=== PATIENT | female | born 1935 | race African-American/Black ===

== ENCOUNTER 2017-01-27 06:55 | Inpatient (IN) | payer OTHER ==
[~2017-01-27] VITALS: Ht 149.9 cm; Wt 50.0 kg
[2017-01-27] VITALS (33 sets, daily range): BP systolic 92–157; BP diastolic 57–100
--- NOTE | ~2017-01-27 | EKG ---
[address] [address] ELECTROCARDIOGRAM REPORT Name: ROBERTA BAINS Room #: 240-P ADM IN M.R.#: [id number] Admission: 01/27/17 Attend Phys: Alex Machuca MD Discharge: Date of : 33 Report #: [id number] THIS REPORT FOR: //name// [facility] Test Date: 2017-01-29 Test Time: 06:32:44 Pat Name: ROBERTA BAINS Department: Room: 240 P Gender: F Probate Paralegal: sheree : 1935 Requested By: Nic Mitchell Order Number: [id number] MD: Stepan Beal Measurements Intervals [place] Rate: 76 P: 0 IN: 47 QRS: 45 QRSD: 90 T: -27 QT: 445 QTc: 501 Interpretive Statements Sinus rhythm Short IN interval Inferior infarct, age indeterminate Prolonged QT interval Electronically Signed On 01-29-2017 7:37:34 ENDLESS TRACK VEHICLE MECHANIC by Stepan Beal [email or web address] <ELECTRONICALLY SIGNED> By: Stepan Beal MD 01/29/17 0737 0632 1 Stepan Beal MD /CHASITY
--- NOTE | ~2017-01-27 | HC ---
[facility] [place] [address] CONSULTATION Name: ROBERTA BAINS Room #: 240-P ADM IN M.R.#: [id number] Admission: 01/27/17 Attend Phys: Alex Machuca MD Discharge: Date of : 33 Report #: [id number] THIS REPORT FOR: //name// CC: Alvarez Machuca PRIMARY PHYSICIAN: Unknown. REFERRAL PHYSICIAN: Dr. Alex Machuca REASON FOR REFERRAL: Pneumonia and sepsis. HISTORY OF PRESENT ILLNESS: The patient is an 81-year-old -Iranian female who was brought to Emergency Room with decreased mental status. The patient was brought in by her son who is her DPOA. A pulmonary consultation was requested. The patient has a history of CVA. She has mild residual weakness though she ambulates with a walker. She is slightly weak on the left side. She was in her usual state of health until a few days ago when she felt ill with flu-like symptoms, chills. Today, she was found to be less arousable and was brought to the Emergency Room. According to the family, the patient has had trouble with choking sensation when she eats or drinks following a stroke about 2 years ago. They felt that this is worsening over time. Chest x-ray performed in the Emergency Room revealed mild infiltrates in both lung fregoso. Currently, she appears mildly dyspneic, arousable, but appears somnolent. She has upper airway sounds with increased respiratory efforts. PAST MEDICAL HISTORY: As mentioned above including history of CVA with mild left-sided weakness, coronary artery disease undergoing coronary artery bypass surgery, history of heart failure, hypertension. PAST SURGICAL HISTORY: As mentioned above. ALLERGIES: CONTRAST DYE reactions not specified, PENICILLIN reactions not specified. HOME MEDICATIONS: Include lisinopril, amlodipine, Coreg, isosorbide, Lasix, Plavix, Vytorin, aspirin, potassium supplements. FAMILY HISTORY: Noncontributory. [facility] [address] [place] [address] CONSULTATION Name: ROBERTA BAINS Room #: [address] [place] [address] IN ..#: [id number] Admission: 01/27/17 Attend Phys: Alex Machuca MD Discharge: Date of : 33 Report #: [id number] SOCIAL HISTORY: The patient apparently smokes according to family. There is no history of alcohol use. REVIEW OF SYSTEMS: Is deferred as patient is not able to provide a good history. PHYSCIAL EXAMINATION: GENERAL: She appears weak, arousable. VITAL SIGNS: Temperature is 98 degrees Fahrenheit, pulse is 65, respiratory rate of 20, blood pressure 113/73 mmHg, saturation 97%. HEENT: Normocephalic, atraumatic. NECK: Supple without any lymphadenopathy or thyromegaly. CHEST: Coarse breath sounds bilaterally with upper airway breath sounds. No obvious wheezes. CARDIOVASCULAR: Heart sounds are distant. No murmurs or gallop. Pulses are 2+/4+ bilaterally. BREASTS: Exam deferred. ABDOMEN: Soft, nontender, no organomegaly or masses felt. GENITOURINARY: Deferred. RECTAL: Deferred. EXTREMITIES: No cyanosis or clubbing or edema. LABORATORY DATA: Chest x-ray as mentioned above showing mild interstitial infiltrates in both lower lung fregoso. CT head was unremarkable other than atrophic changes. Influenza A and B swab is negative. Electrolytes are normal except for creatinine of 1.8. Liver function test is unremarkable. WBC is 9300, hemoglobin 7.9, platelets are normal. Arterial blood gas revealed pH 7.34, pCO2 of 36, pO2 71 on room air. Of note, serum bicarbonate is 20. IMPRESSION: 1. Altered mental status in this 81-year-old -Iranian female. The patient is felt to be at risk for aspiration. Chest x-ray shows mild infiltrates. Aspiration pneumonia is possible. 2. Encephalopathy likely due to sepsis. 3. Metabolic acidosis with partial respiratory compensation related to sepsis. 4. Renal insufficiency. It is unclear whether it is acute or chronic. We will need to address this once the patient stabilizes. 5. History of coronary artery disease undergoing coronary artery bypass surgery. 6. History of heart failure. I do not have any recent echocardiogram to assess LV function. 7. Cerebrovascular accident with mild weakness. RECOMMENDATION: I had a long discussion with the patient's family including her daughter regarding above findings. We will treat for presumed aspiration [address] [address] CONSULTATION Name: ROBERTA BAINS Room #: 240-P [facility] IN M.R.#: [id number] Admission: 01/27/17 Attend Phys: Alex Machuca MD Discharge: Date of : 33 Report #: [id number] pneumonia, respiratory therapy will be addressed including suctioning as needed. Breathing treatments will be added along with O2 as needed. Because of her overall progressive weakness and deconditioning, we also discussed that patient may get worse before she gets better. The family understands. Thank you for this consultation. <ELECTRONICALLY SIGNED> By: Maximino Garza MD 01/29/17 1556 1502 0831 Maximino Garza MD /nt
--- NOTE | ~2017-01-27 | HC ---
[facility] [place] [address] CONSULTATION Name: ROBERTA BAINS Room #: 455-P ADM IN M.R.#: [id number] Admission: 01/27/17 Attend Phys: Alex Machuca MD Discharge: Date of : 33 Report #: [id number] THIS REPORT FOR: //name// CC: Alvarez Machuca DATE OF SERVICE: 01/31/2017 I have been asked to evaluate this 81-year-old lady's left anterior chest wall hematoma. The patient presented to the Emergency Room for approximately 4 days ago because of hypoxia and altered mental status. The patient was brought to the Emergency Room by her son who has durable power of criminal attorney and stated that she has been sick for a few days with cold, upper respiratory tract infection symptoms, she was coughing and quite congested over the past 2 days. At that time, she had an elevated troponin level and had a opacity of an upper extremity vein for initiation of IV fluids. An attempt was then made to start on IV in the left anterior chest wall, which was unsuccessful. The patient then had to be started on IV heparin for presumptive myocardial event. She also had been on Plavix orally at home prior to admission. Now, she has developed somewhat large tight hematoma of the left anterior chest wall. PAST MEDICAL HISTORY: Consistent with hypertension. PAST SURGICAL HISTORY: Previous open heart surgery for coronary artery disease. ALLERGIES: TO CONTRAST DYE, IODINE AND PENICILLIN. MEDICATIONS LIST: Lisinopril 20 mg daily, amlodipine, carvedilol, Imdur 30 mg, furosemide 40 mg, Plavix 75 mg daily tubal daily other vitamins and fish oil. SOCIAL HISTORY: She is everyday smoker prior to admission. Denies alcohol use or illegal drugs According to the son, the patient with her altered mental status. REVIEW OF SYSTEMS: Not obtainable. PHYSICAL EXAMINATION: GENERAL: The patient is sleeping with endotracheal tube in place, left anterior chest wall demonstrates some bruising as well as thickening of the soft tissues and tightness. No fluctuant area is noted. There is no cellulitis of the skin overlying the hematoma. DIAGNOSTIC IMPRESSION: The anterior left chest wall hematoma secondary to need for heparin therapy at this time of admission. I would recommend a CT scan of the chest without IV contrast. This is unlikely to delineate in the significant [facility] [address] [place] [address] CONSULTATION Name: ROBERTA BAINS Kerrie Room #: 455-P [facility] IN M.R.#: [id number] Admission: 01/27/17 Attend Phys: Alex Machuca MD Discharge: Date of : 33 Report #: [id number] fluctuant or fluid filled collection for need for interventional radiology drainage. Thank you for allowing us to participate in her care. <ELECTRONICALLY SIGNED> By: Omar Nino MD, FACS 02/06/17 1128 1637 2208 Omar Nino MD, FACS /nt
--- NOTE | ~2017-01-27 | 2DMMODE ---
[facility] [place] [address] 2 D/M-MODE ECHOCARDIOGRAM Name: ROBERTA BAINS Kerrie Room #: 240-P [facility] IN ..#: [id number] Admission: 01/27/17 Attend Phys: Batsheva Lackey Discharge: Date of : 33 Date of Service: 01/28/17 1235 Report #: [id number] THIS REPORT FOR: //name// APPROVED REPORT EXAM: Comprehensive 2D, Doppler, and color-flow Echocardiogram Patient Location: Bedside Blood Pressure: 137/77 mmHg HR: 71 bpm Other Information Study Quality: Adequate Indications Hypertension/HDD Congestive Heart Failure Murmur 2D Dimensions LVEF(%): 39.47 (>50%) IVSd: 9.53 (7-11mm) LVOT Diam: 15.61 (18-24mm) LVDd: 40.17 mm PWd: 6.01 (7-11mm) Ascending Aorta: 25.02 mm LVDs: 32.59 (25-40mm) IVC: 21.00 mm Aortic Root: 24.00 mm Puente's LVEF: 39.47 % Volumes Left Atrial Volume (Systole) Single Plane 4CH: 70.49 mL Single Plane 2CH: 46.91 mL LA ESV Index: 49.00 mL/m2 Aortic Valve AoV Peak Ben.: 3.29 m/s AO Peak Gr.: 43.36 mmHg LV Max P.28 mmHg LV Mean P.13 mmHg AO V2 VTI: 863.18 mm LV Max: 1.03 m/s IRENE (VTI): 52.12 cm2 LV Mean: 0.65 m/s LV V1 VTI: 235.23 mm SV (LVOT): 81835.90 mL Mitral Valve [facility] [place] [address] 2 D/M-MODE ECHOCARDIOGRAM Name: ROBERTA BAINS Room #: 240-P [facility] IN M.R.#: [id number] Admission: 01/27/17 Attend Phys: Batsheva Lackey Discharge: Date of : 33 Date of Service: 01/28/17 1235 Report #: [id number] MV Peak Gr.: 12.73 mmHg MV PHT: 65.66 ms MV Mean Gr.: 5.23 mmHg MV E Max Ben.: 1.73 m/s E/A Ratio: 1.4 MV A Ben.: 1.24 m/s MV Decel. Time: 226.43 ms MV Max Ben.: 1.78 m/s MV Mean Ben.: 1.09 m/s MV VTI: 487.37 mm MVA VTI: 92.31 mm2 Pulmonary Valve PV Peak Ben.: 0.88 m/s PV Peak Gr.: 3.12 mmHg Tricuspid Valve TR Peak Ben.: 3.72 m/s RAP Estimate: 15.00 mmHg TR Peak Gr.: 55.21 mmHg Left Ventricle The left ventricle is normal size. There is normal LV segmental wall motion. There is normal left ventricular wall thickness. Left ventricular systolic function is normal. The left ventricular ejection fraction is within the normal range. LVEF is 55-60%. Grade IV - fixed restrictive diastolic dysfunction. Right Ventricle The right ventricle is normal size. The right ventricular systolic function is normal. Atria Left atrium is dilated. Right atrium is dilated. Aortic Valve Aortic valve is calcified. Mild aortic regurgitation. Severe aortic stenosis. Mitral Valve Mild mitral annular calcification. Moderate mitral regurgitation. Tricuspid Valve The tricuspid valve is normal in structure. There is mild to moderate tricuspid regurgitation. The right atrial pressure is estimated at 15 mmHg. There is severe pulmonary hypertension. Pulmonic Valve The pulmonary valve is normal in structure. There is no [place]mon[place] [address] 2 D/M-MODE ECHOCARDIOGRAM Name: ROBERTA BAINS Room #: 240-[facility] IN [facility].#: [id number] Admission: 01/27/17 Attend Phys: Batsheva Lackey Discharge: Date of : 33 Date of Service: 01/28/17 1235 Report #: [id number] Great Vessels The aortic root is normal in size. The inferior vena cava is dilated with no inspiratory collapse. Pericardium There is no pericardial effusion. <Conclusion> The left ventricle is normal size. Left ventricular systolic function is normal. The left ventricular ejection fraction is within the normal range. LVEF is 55-60%. Left atrium is dilated. Right atrium is dilated. Aortic valve is calcified. Mild aortic regurgitation. Severe aortic stenosis. Mild mitral annular calcification. Moderate mitral regurgitation. There is mild to moderate tricuspid regurgitation. The right atrial pressure is estimated at 15 mmHg. There is severe pulmonary hypertension. <ELECTRONICALLY SIGNED> By: Walker Mittal MD 01/28/17 1235 1235 1235 Walker Mittal MD /INF
--- NOTE | ~2017-01-27 | HC ---
[facility] [place] [address] CONSULTATION Name: ROBERTA BAINS Room #: 455-P ADM IN .R.#: [id number] Admission: 01/27/17 Attend Phys: Alex Machuca MD Discharge: Date of : 33 Report #: [id number] THIS REPORT FOR: //name// CC: Alvarez Machuca DATE OF SERVICE: 02/04/2017 HISTORY OF PRESENT ILLNESS: The patient is an 81-year-old -[place] African right-handed female, admitted with mental status changes, pneumonia and acute renal insufficiency. The patient has a prior history of a CVA with left hemiparesis. She was on Plavix and aspirin. Upon admission, she was noted to have a non-Q wave FL. She had anemia with the GI bleed after starting heparin for new-onset atrial fibrillation. MRI of the brain showed multiple strokes, left cerebral area, thalamus and mid brain. Neurology was involved as well as gastroenterology and cardiology. She is noted to be at high risk for more strokes since she cannot be anticoagulated. She also had a left chest wall hematoma, which was another reason for holding the anticoagulation. We are seeing her in rehabilitation medicine consultation. PAST MEDICAL HISTORY: Includes a prior CVA with residual left hemiparesis, history of hypertension, atrial fibrillation, prior coronary artery bypass grafting, irritable bowel syndrome and GERD. MEDICATIONS: Please see the full medication listing. ALLERGIES: IODINE and PENICILLIN. SOCIAL HISTORY: Lives in a house with son. She was able to get up and ambulate with the walker and was independent with ADLs. There is a daughter that helped with bathing. There is an involved [id number] who is the durable power of insurance attorney. REVIEW OF SYSTEMS: Did not offer any current complaints of chest pain, shortness of breath or abdominal discomfort. She is rather sleepy and easily fatigues. PHYSICAL EXAMINATION: GENERAL: On examination, an 81-year-old -[place] African female who appeared rather frail in appearance, no obvious distress. VITAL SIGNS: Temperature 98.1, pulse 70, respirations 19 and blood pressure is 145/73. The patient is sleepy, she will arouse. HEENT: Facies, they appear to be reasonably symmetric. EXTREMITIES: She has functional range of motion of that left upper extremity. Strength is probably a grade 3+/5. Right upper extremity strength is a 3+/5. DTRs are trace to 1. Lower extremities, I would grade her strength at a 3 [place] [address] CONSULTATION Name: ROBERTA BAINS Room #: 455-P [facility] IN [facility].#: [id number] Admission: 01/27/17 Attend Phys: Alex Machuca MD Discharge: Date of : 33 Report #: [id number] There was no clonus. I was unable to really assess sensation. No focal calf swelling. She has been mod assist with [id number] and was max assist with [id number]-[id number]. ASSESSMENT: An 81-year-old -[place] African female with the following problem list: 1. Multiple strokes, left cerebral hemisphere, thalamus and mid brain. 2. New-onset atrial fibrillation with non-Q wave myocardial infarction. 3. Gastrointestinal bleed after starting heparin. She is not a candidate for anticoagulation. 4. Left chest wall hematoma, which is another contraindication to anticoagulation at this time. 5. Premorbid history of a cerebrovascular accident with residual left hemiparesis, for which the patient had been on Plavix and aspirin. 6. Prior coronary artery bypass grafting. 7. Atrial fibrillation. PLAN: The patient appears rather frail right now. We will have physical therapy and occupational therapy just do some bedside range of motion and gentle strengthening. I will have them work on some basic bed mobility. We will hold off on advancing her activity level pending her medical stability. Discussion was held with the daughter and [id number] regarding rehab therapy issues and options as she further stabilizes. We will continue to follow along with you. By: 1209 1229 Alvarez Mayes MD /nt
--- NOTE | ~2017-01-27 | HC ---
[facility] [place] [address] CONSULTATION Name: ROBERTA BAINS Room #: 242-P [facility] IN .R.#: [id number] Admission: 01/27/17 Attend Phys: Alex Machuca MD Discharge: Date of : 33 Report #: [id number] THIS REPORT FOR: //name// CC: Alvarez Machuca DATE OF SERVICE: 01/31/2017 REASON FOR CONSULTATION: Acute kidney injury and oliguria in this patient, seen in the intensive care unit. HISTORY OF PRESENT ILLNESS: This 81-year-old female has a complicated medical history including longstanding hypertension, previous CVA, congestive heart failure, status post coronary artery bypass surgery. She was brought to the emergency room on the day of admission with decreased mental state. She had previously had a recent upper respiratory infection without nausea, vomiting, though her oral intake was poor. PAST MEDICAL HISTORY: Remarkable as described above. MEDICATIONS: On admission include Zestril 20 mg b.i.d., amlodipine 5 mg at bedtime, carvedilol 12.5 mg b.i.d., Imdur 30 mg daily, furosemide 40 mg daily, Plavix 75 mg daily, Vytorin 10/80 at bedtime, aspirin 81 mg daily, vitamin C 500 mg daily, potassium 20 mEq b.i.d., fish oil 1 g daily, and vitamin B12 1000 mcg daily. FAMILY HISTORY, PERSONAL AND SOCIAL HISTORY, AND REVIEW OF SYSTEMS: Not obtainable at this time. PHYSICAL EXAMINATION: GENERAL: Reveals an elderly poorly responsive female, in no acute distress. She is maintained on BiPAP at this time. VITAL SIGNS: Blood pressure 92/68, pulse 91, and temperature 98.6. SKIN: Warm and dry. There is diminished turgor noted. HEENT: Mucous membranes are dry. NECK: Veins are flat. PULMONARY: Reveals scattered bilateral rhonchi and wheezes. CARDIOVASCULAR: Reveals an irregularly irregular rhythm without murmur or rub. ABDOMEN: Soft and nontender without palpable mass or organomegaly. NEUROLOGIC: Reveals the patient arouse to her name, but she is unable communicate effectively at this time. Her examination is otherwise nonfocal. DIAGNOSTIC DATA: Available at this time include sodium 137, potassium 4.2, chloride 107, CO2 of 17, BUN 51, creatinine 1.9, glucose 110, and albumin 2.0. White blood cell count 24,400, hemoglobin 11.7, hematocrit 34.1 and platelet count 116,000. Arterial blood gases, pH 7.27, pCO2 of 27, and pO2 of 134. [place] [address] CONSULTATION Name: ROBERTA BAINS Room #: 242-P [facility] IN M.R.#: [id number] Admission: 01/27/17 Attend Phys: Alex Machuca MD Discharge: Date of : 33 Report #: [id number] Urinalysis reveals clear yellow urine, specific gravity 1.015, pH 6, trace protein, 3+ blood, urine sodium less than 20, and urine creatinine 72.8. ASSESSMENT: 1. Acute kidney injury with oliguria of multifactorial etiology including an element of prerenal azotemia suggested by her very low urine sodium, further compounded by her current hypotension and relative hypoperfusion due to her atrial fibrillation with rapid ventricular response. I believe the patient's problems are effectively prerenal and should improve with rate control and modest volume replacement. There is no evidence of an active parenchymal process such as glomerulonephritis at this time. I doubt the presence of a pulmonary renal syndrome. 2. Acute respiratory failure likely secondary to aspiration. 3. Atrial fibrillation with rapid ventricular response. 4. Congestive heart failure, status post previous coronary artery bypass surgery. PLAN: We will provide the patient with medical support. She is being evaluated and treated by cardiology in an effort to improve her cardiac performance. I will initiate isotonic bicarbonate containing IV fluids at a modest rate given her effective prerenal state and respiratory compromise. We will follow serial laboratory studies, I and O and daily weights. She has received packed red blood cell transfusion all ready and we will monitor her hemoglobin serially. Please see orders. CRITICAL CARE: 45 minutes. <ELECTRONICALLY SIGNED> By: Murphy Mejias MD 02/04/17 0641 1330 1915 Murphy Mejias MD /nt
--- NOTE | ~2017-01-27 | EKG ---
[address] [employer] [place] [address] ELECTROCARDIOGRAM REPORT Name: ROBERTA BAINS Room #: 242-P ADM IN M.R.#: [id number] Admission: 01/27/17 Attend Phys: Alex Machuca MD Discharge: Date of : 33 Report #: [id number] THIS REPORT FOR: //name// [facility] Test Date: 2017-01-31 Test Time: 00:12:21 Pat Name: ROBERTA BAINS Department: Room: 242 P Gender: F Machine Fixer: asher : 1935 Requested By: Yannick Morales Order Number: [id number] MD: Cornelius Hallman Measurements Intervals [place] Rate: 141 P: MS: QRS: 14 QRSD: 100 T: 177 QT: 280 QTc: 429 Interpretive Statements Multifocal atrial tachycardia Nonspecific ST and T wave abnormality Inferior infarct, old Compared to ECG 01/29/2017 06:32:44 multifocal atrial tachycardia has replaced sinus rhythm Electronically Signed On 01-31-2017 9:15:29 DREDGE PIPE INSTALLER by Cornelius Hallman [email or web address] <ELECTRONICALLY SIGNED> By: Cornelius Hallman MD, [facility] 01/31/1715 Cornelius Hallman MD, [facility] /EPI
--- NOTE | ~2017-01-27 | EKG ---
[address] [address] ELECTROCARDIOGRAM REPORT Name: ROBERTA BAINS Room #: 240-P ADM IN M.R.#: [id number] Admission: 01/27/17 Attend Phys: Alex Machuca MD Discharge: Date of : 33 Report #: [id number] THIS REPORT FOR: //name// [facility] Test Date: 2017-01-28 Test Time: 19:20:30 Pat Name: ROBERTA BAINS Department: Room: 240 P Gender: F Metropolitan Editor: Batsheva THOMAS : 1935 Requested By: Nic Mitchell Order Number: [id number] MD: Stepan eBal Measurements Intervals [place] Rate: 77 P: 78 IL: 123 QRS: 13 QRSD: 90 T: -23 QT: 548 QTc: 621 Interpretive Statements Sinus rhythm Inferior infarct, old Prolonged QT interval Compared to ECG 01/27/2017 07:40:25 Prolonged QT interval now present Ventricular premature complex(es) no longer present Myocardial infarct finding still present Electronically Signed On 01-29-2017 7:36:24 AUTISM MOTOR SPECIALIST by Stepan Beal [email or web address] <ELECTRONICALLY SIGNED> By: Stepan Beal MD 01/29/17 0736 19 Stepan Beal MD /EPI
--- NOTE | ~2017-01-27 | HC ---
[facility] [place] [address] CONSULTATION Name: ROBERTA BAINS Room #: 240-P ADM IN M.R.#: [id number] Admission: 01/27/17 Attend Phys: Alex Machuca MD Discharge: Date of : 33 Report #: [id number] THIS REPORT FOR: //name// CC: Alvarez Machuca DATE OF SERVICE: 01/27/2017 REASON FOR CONSULTATION: Elevated troponins. HISTORY OF PRESENT ILLNESS: This is a very pleasant 81-year-old female who was brought in through the emergency room due to increasing shortness of breath and mental status changes. She has been congested for approximately 2-3 days prior to admission with cough, but non-productive in nature. The patient has used some Vicks VapoRub, without any improvement, but continued to progress more shortness of breath to the point of being audibly wheezing. She was brought by her family and noted that her mental status is changed, not being as responsive she usually was. She does carry a history of coronary artery disease, having undergone aortocoronary bypass grafting in the past, but denies any recent chest pain, pressure, tightness, heaviness or fullness. Denies any orthopnea or PND from a cardiac standpoint, except for this shortness of breath that she describes. PAST MEDICAL HISTORY: Significant for: 1. Hypertension. 2. Coronary artery disease. 3. Prior history of congestive heart failure. ALLERGIES: IODINE, CONTRAST and PENICILLIN. MEDICATIONS: Imdur 30, furosemide 40, Plavix 75, Vytorin 10/80, aspirin 81 mg daily, vitamin C, K-Dur, fish oil, vitamin B12, lisinopril, amlodipine and carvedilol. PAST SURGICAL HISTORY: Significant for aortocoronary bypass grafting. ELECTROCARDIOGRAM: Demonstrates a sinus rhythm to sinus tachycardia, nonspecific ST-T wave changes. LABORATORY DATA: Laboratories demonstrate a troponin of 0.13. WBC of 3.36, H and H of 10.9 and 32.8 with a platelet count of 214,000. BUN and creatinine are 39 and 1.8. Natriuretic peptide is 5748. RADIOLOGIC DATA: Evidence of median sternotomy, cardiomegaly with mildly increased vascular congestion and radial opacity consist with a left basilar infiltrate. [facility] [address] [place] [address] CONSULTATION Name: ROBERTA BAINS Room #: 240-P ADM IN M.R.#: [id number] Admission: 01/27/17 Attend Phys: Alex Machuca MD Discharge: Date of : 33 Report #: [id number] REVIEW OF SYSTEMS: Obtained from the family. Except for symptoms previously mentioned and those commensurate with comorbid states, the 10-point review of system is negative. IMPRESSION: 1. Elevated troponins, multifactorial. She is not having any angina now, but having increased her breathing. It is reasonable that some of this could be from small vessel disease. We would need to monitor closely and observe. Improving oxygenation will be beneficial. 2. Shortness of breath with an infiltrate and pneumonia. Will need significant pulmonary attention, for which pulmonary has already been consulted. 3. Hypertension. It seems to be not an issue at this juncture. Continue on the current medical regimen. <ELECTRONICALLY SIGNED> By: Walker Mittal MD 01/28/17 1520 2244 1327 Walker Mittal MD /nt
--- NOTE | ~2017-01-27 | EKG ---
[address] [employer] [place] [address] ELECTROCARDIOGRAM REPORT Name: ROBERTA BAINS Room #: 240-P ADM IN M.R.#: [id number] Admission: 01/27/17 Attend Phys: Alex Machuca MD Discharge: Date of : 33 Report #: [id number] THIS REPORT FOR: //name// [facility] ED Test Date: 2017-01-27 Test Time: 07:40:25 Pat Name: ROBERTA BAINS Department: Room: 240 Gender: F Inpatient Pharmacist: MAY : 1935 Requested By: Be Barnett Order Number: [id number] MD: Stepan Beal Measurements Intervals [place] Rate: 72 P: 76 ME: 120 QRS: 9 QRSD: 97 T: 94 QT: 437 QTc: 479 Interpretive Statements Sinus rhythm Multiform ventricular premature complexes Inferior infarct, old Lateral leads are also involved No previous ECG available for comparison Electronically Signed On 01-28-2017 7:37:29 SOCIAL SCIENCE ANALYST by Stepan Beal [email or web address] <ELECTRONICALLY SIGNED> By: Stepan Beal MD 01/28/17 0737 9 9 Stepan Beal MD /CHASITY
[2017-01-27 07:26] LABS: ABG SAMPLE TYPE ARTERIAL; HCO3 19.1 mmol/L (22.0-26.0); LACTATE 1.53 mmol/L (0.5-2.0); O2(CT) 15.3 mL/dL (15.0-23.0); O2Hb 92.5 % (92.0-98.0); PCO2 36.3 mmHg (35.0-45.0); PO2 71.9 mmHg (80.0-100.0); sO2 93.7 % (92.0-98.0); tCO2 20.3 mmol/L (24.0-30.0)
[2017-01-27 07:27] LABS: STICK SITE R.RADIAL
[2017-01-27 07:40] LABS: ABSOLUTE NEUTROPHILS 6.5 thou/uL (1.4-8.2); BASOPHILS 0.4 % (0.0-2.0); EOSINOPHILS 0.1 % (0.0-3.0); HEMATOCRIT 32.8 % (37.0-47.0); HEMOGLOBIN 10.9 gm/dL (12.0-15.0); LYMPHOCYTES 22.9 % (24.0-44.0); MCH 32.3 pg (26.0-34.0); MCHC 33.1 g/dL (28.0-37.0); MCV 97.7 fL (80.0-100.0); PLATELET COUNT 214 thou/uL (150-400); POLYS 69.6 % (36.0-66.0); RBC 3.36 mil/uL (4.20-5.00); RDW 12.5 % (10.5-14.5); WBC 9.3 thou/uL (4.0-11.0)
[2017-01-27 07:42] LABS: MANUAL DIFF NO
[2017-01-27 07:48] LABS: CALCIUM 9.1 mg/dL (8.5-10.1); CREATININE 1.8 mg/dL (0.6-1.3); POTASSIUM 4.4 mmol/L (3.5-5.1)
[2017-01-27 07:52] LABS: INR 1.1
[2017-01-27 08:00] LABS: TROPONIN-I 0.13 ng/mL (<0.04-0.07)
[2017-01-27 08:37] LABS: URINE BILIRUBIN NEGATIVE (Negative); URINE BLOOD NEGATIVE (Negative); URINE COLOR YELLOW; URINE GLUCOSE-RANDOM* NEGATIVE (Negative); URINE KETONES NEGATIVE (Negative); URINE NITRITE NEGATIVE (Negative); URINE PROTEIN (DIPSTICK) NEGATIVE (Negative); URINE UROBILINOGEN 0.2 E.U./dl (0.2-1.0)
[2017-01-27] MEDS ORDERED: NORVASC5 MG PO (08:54)
[2017-01-27] MEDS ORDERED: CARVEDILOL12.5 MG PO (08:54)
[2017-01-27] MEDS ORDERED: LISINOPRIL20 MG PO (08:54)
[2017-01-27] MEDS ORDERED: PLAVIX 75 MG TA75 M1 PO (08:55)
[2017-01-27] MEDS ORDERED: IMDUR 30 MG TAB30 M1 PO (08:55)
[2017-01-27] MEDS ORDERED: FUROSEMIDE 40 M40 MG PO (08:55)
[2017-01-27] MEDS ORDERED: VYTORIN 10-801 EACH PO (09:29)
[2017-01-27] MEDS ORDERED: ASPIR 8181 MG PO (09:30)
[2017-01-27] MEDS ORDERED: POTASSIUM20 PO (09:31)
[2017-01-27] MEDS ORDERED: VITAMINC500 PO (09:31)
[2017-01-27] MEDS ORDERED: VITAMIN B-12500 MCG PO (09:32)
[2017-01-27] MEDS ORDERED: FISH OIL 1,2001 EAC3 PO (09:32)
[2017-01-27 16:01] LABS: CALCIUM 7.4 mg/dL (8.5-10.1); CREATININE 1.3 mg/dL (0.6-1.3); MAGNESIUM 1.6 mg/dL (1.8-2.4); POTASSIUM 3.7 mmol/L (3.5-5.1)
[2017-01-27 17:39] LABS: ABG SAMPLE TYPE ARTERIAL; BE(vivo) -8.8 mmol/L (-2 to +3); HCO3 15.8 mmol/L (22.0-26.0); LACTATE 1.78 mmol/L (0.5-2.0); O2(CT) 14.8 mL/dL (15.0-23.0); O2Hb 91.9 % (92.0-98.0); PCO2 30.4 mmHg (35.0-45.0); PO2 69.9 mmHg (80.0-100.0); pH 7.335 (7.360-7.450); sO2 93.3 % (92.0-98.0); tCO2 16.8 mmol/L (24.0-30.0)
[2017-01-27 17:40] LABS: ABG COMMENT NO COMPLICATIONS.; STICK SITE R.BRACHIAL
[2017-01-28] VITALS (26 sets, daily range): BP systolic 113–152; BP diastolic 65–89
[2017-01-28 05:43] LABS: BASOPHILS 0.1 % (0.0-2.0); HEMATOCRIT 28.7 % (37.0-47.0); HEMOGLOBIN 9.5 gm/dL (12.0-15.0); MCH 32.5 pg (26.0-34.0); MCHC 33.3 g/dL (28.0-37.0); MCV 97.6 fL (80.0-100.0); MONOCYTES 1.4 % (1.0-8.0); PLATELET COUNT 161 thou/uL (150-400); POLYS 79.5 % (36.0-66.0); RBC 2.94 mil/uL (4.20-5.00); RDW 12.5 % (10.5-14.5); WBC 6.3 thou/uL (4.0-11.0)
[2017-01-28 05:44] LABS: CALCIUM 8.4 mg/dL (8.5-10.1); CREATININE 1.5 mg/dL (0.6-1.3); POTASSIUM 4.3 mmol/L (3.5-5.1)
[2017-01-28 05:53] LABS: MANUAL DIFF NO
[2017-01-29] VITALS (20 sets, daily range): BP systolic 117–164; BP diastolic 68–95
[2017-01-29 04:45] LABS: ABSOLUTE NEUTROPHILS 12.3 thou/uL (1.4-8.2); HEMATOCRIT 28.5 % (37.0-47.0); HEMOGLOBIN 9.4 gm/dL (12.0-15.0); LYMPHOCYTES 12.2 % (24.0-44.0); MCH 31.4 pg (26.0-34.0); MCHC 32.8 g/dL (28.0-37.0); MCV 95.5 fL (80.0-100.0); MONOCYTES 2.3 % (1.0-8.0); PLATELET COUNT 173 thou/uL (150-400); POLYS 85.5 % (36.0-66.0); RBC 2.98 mil/uL (4.20-5.00); RDW 12.6 % (10.5-14.5); WBC 14.4 thou/uL (4.0-11.0)
[2017-01-29 04:53] LABS: MANUAL DIFF NO
[2017-01-29 06:05] LABS: CALCIUM 8.2 mg/dL (8.5-10.1); CREATININE 1.7 mg/dL (0.6-1.3); POTASSIUM 4.2 mmol/L (3.5-5.1)
[2017-01-29 06:09] LABS: TROPONIN-I 2.03 ng/mL (<0.04-0.07)
[2017-01-29 21:59] LABS: URINE BILIRUBIN NEGATIVE (Negative); URINE BLOOD 3+ (Negative); URINE COLOR YELLOW; URINE GLUCOSE-RANDOM* NEGATIVE (Negative); URINE KETONES NEGATIVE (Negative); URINE NITRITE NEGATIVE (Negative); URINE PROTEIN (DIPSTICK) TRACE (Negative); URINE SPECIFIC GRAVITY 1.015 (1.003-1.035); URINE UROBILINOGEN 0.2 E.U./dl (0.2-1.0)
[2017-01-29 22:57] LABS: CASTS None Seen /LPF (None Seen); CRYSTALS None Seen /LPF (None Seen); SQUAMOUS 4-10 Moderate /LPF (0-3)
[2017-01-29 22:58] LABS: BACTERIA None Seen /HPF (None Seen); URINE WBC 0-5 Rare /HPF (0-5)
[2017-01-30] VITALS (15 sets, daily range): BP systolic 111–151; BP diastolic 53–104
[2017-01-30 06:20] LABS: ABSOLUTE NEUTROPHILS 14.1 thou/uL (1.4-8.2); HEMATOCRIT 25.7 % (37.0-47.0); HEMOGLOBIN 8.5 gm/dL (12.0-15.0); LYMPHOCYTES 11.9 % (24.0-44.0); MCH 31.6 pg (26.0-34.0); MCHC 33.2 g/dL (28.0-37.0); MCV 95.1 fL (80.0-100.0); MONOCYTES 1.9 % (1.0-8.0); PLATELET COUNT 154 thou/uL (150-400); POLYS 86.2 % (36.0-66.0); RDW 12.5 % (10.5-14.5); WBC 16.3 thou/uL (4.0-11.0)
[2017-01-30 06:37] LABS: MANUAL DIFF NO
[2017-01-30 06:39] LABS: ALBUMIN 2.2 g/dL (3.4-5.0); CALCIUM 8.1 mg/dL (8.5-10.1); CREATININE 1.4 mg/dL (0.6-1.3); MAGNESIUM 2.3 mg/dL (1.8-2.4); PHOSPHORUS 3.4 mg/dL (2.5-4.9); POTASSIUM 3.8 mmol/L (3.5-5.1); TOTAL BILIRUBIN 0.2 mg/dL (<0.1-1.0)
[2017-01-30 20:07] LABS: URINE CREATININE-RANDOM* 72.8 mg/dL (Not Estab.); URINE PROTEIN-RANDOM* 16.9 mg/dL (Not Estab.)
[2017-01-31] VITALS (72 sets, daily range): BP systolic 84–125; BP diastolic 40–100
[2017-01-31 00:59] LABS: ABG SAMPLE TYPE ARTERIAL; BE(vivo) -14.4 mmol/L (-2 to +3); HCO3 11.2 mmol/L (22.0-26.0); LACTATE 6.52 mmol/L (0.5-2.0); O2(CT) 10.3 mL/dL (15.0-23.0); O2Hb 97.3 % (92.0-98.0); PCO2 25.1 mmHg (35.0-45.0); PO2 133.9 mmHg (80.0-100.0); sO2 98.4 % (92.0-98.0)
[2017-01-31 01:02] LABS: Pressure Support 12 cm H20; STICK SITE LBA; pH 7.267 (7.360-7.450)
[2017-01-31 01:05] LABS: MCH 31.2 pg (26.0-34.0); MCHC 32.6 g/dL (28.0-37.0); MCV 95.5 fL (80.0-100.0); RBC 2.08 mil/uL (4.20-5.00); RDW 12.6 % (10.5-14.5); WBC 27.9 thou/uL (4.0-11.0)
[2017-01-31 01:17] LABS: HEMATOCRIT 19.9 % (37.0-47.0); HEMOGLOBIN 6.5 gm/dL (12.0-15.0)
[2017-01-31 01:26] LABS: CALCIUM 7.2 mg/dL (8.5-10.1)
[2017-01-31 04:04] LABS: ABG SAMPLE TYPE ARTERIAL; BE(vivo) -13.6 mmol/L (-2 to +3); HCO3 12.1 mmol/L (22.0-26.0); O2(CT) 10.6 mL/dL (15.0-23.0); O2Hb 96.4 % (92.0-98.0); PCO2 27.1 mmHg (35.0-45.0); PO2 134.4 mmHg (80.0-100.0); sO2 98.4 % (92.0-98.0); tCO2 12.9 mmol/L (24.0-30.0)
[2017-01-31 04:05] LABS: LACTATE 6.18 mmol/L (0.5-2.0); Pressure Support 12 cm H20; STICK SITE LRA; pH 7.266 (7.360-7.450)
[2017-01-31 07:43] LABS: HEMATOCRIT 34.1 % (37.0-47.0); MCH 30.7 pg (26.0-34.0); MCHC 34.2 g/dL (28.0-37.0); RBC 3.8 mil/uL (4.20-5.00); RDW 13.1 % (10.5-14.5); WBC 24.4 thou/uL (4.0-11.0)
[2017-01-31 07:56] LABS: HEMOGLOBIN 11.7 gm/dL (12.0-15.0); MCV 89.7 fL (80.0-100.0)
[2017-01-31 08:01] LABS: CALCIUM 7.2 mg/dL (8.5-10.1); CREATININE 1.9 mg/dL (0.6-1.3); POTASSIUM 4.2 mmol/L (3.5-5.1); TOTAL BILIRUBIN 0.3 mg/dL (<0.1-1.0); TOTAL PROTEIN 5.1 g/dL (6.4-8.2)
[2017-01-31 13:10] LABS: ABG SAMPLE TYPE ARTERIAL; HCO3 15.2 mmol/L (22.0-26.0); LACTATE 1.28 mmol/L (0.5-2.0); O2(CT) 16.8 mL/dL (15.0-23.0); O2Hb 95.9 % (92.0-98.0); PCO2 25.3 mmHg (35.0-45.0); PO2 99.2 mmHg (80.0-100.0); pH 7.397 (7.360-7.450); sO2 97.6 % (92.0-98.0)
[2017-01-31 13:13] LABS: STICK SITE R.BRACHIAL
[2017-01-31 15:47] LABS: HEMATOCRIT 33.1 % (37.0-47.0); HEMOGLOBIN 11.3 gm/dL (12.0-15.0); MCH 30.7 pg (26.0-34.0); MCHC 34.3 g/dL (28.0-37.0); MCV 89.6 fL (80.0-100.0); RBC 3.69 mil/uL (4.20-5.00); RDW 13.4 % (10.5-14.5); WBC 17.3 thou/uL (4.0-11.0)
[2017-01-31 15:59] LABS: ALBUMIN 2.1 g/dL (3.4-5.0); CALCIUM 7.3 mg/dL (8.5-10.1); CREATININE 2.1 mg/dL (0.6-1.3); PHOSPHORUS 4.8 mg/dL (2.5-4.9); POTASSIUM 4.1 mmol/L (3.5-5.1)
[2017-01-31 20:11] LABS: % SATURATION 26 % (20-39); IRON 44 ug/dL (50-170); TIBC 170 ug/dL (250-450); UIBC 126 ug/dL
[2017-02-01] VITALS (41 sets, daily range): BP systolic 82–130; BP diastolic 46–105
[2017-02-01 04:47] LABS: HEMATOCRIT 28.6 % (37.0-47.0); HEMOGLOBIN 9.8 gm/dL (12.0-15.0); MCH 30.8 pg (26.0-34.0); MCHC 34.2 g/dL (28.0-37.0); RBC 3.17 mil/uL (4.20-5.00); RDW 13.2 % (10.5-14.5); WBC 15.2 thou/uL (4.0-11.0)
[2017-02-01 05:03] LABS: ALBUMIN 1.9 g/dL (3.4-5.0); CALCIUM 7.1 mg/dL (8.5-10.1); CREATININE 2.2 mg/dL (0.6-1.3); MAGNESIUM 2.2 mg/dL (1.8-2.4); PHOSPHORUS 4.3 mg/dL (2.5-4.9); POTASSIUM 3.9 mmol/L (3.5-5.1)
[2017-02-01 05:08] LABS: CHOLESTEROL 106 mg/dL (<200); HDL CHOLESTEROL 36 mg/dL (>40); LDL CHOLESTEROL 56 mg/dL (<100); TC:HDL 2.9 Ratio (Not establshd); TRIGLYCERIDE 70 mg/dL (<150); VLDL 14 mg/dL (<40)
[2017-02-02] VITALS (14 sets, daily range): BP systolic 108–132; BP diastolic 54–90
[2017-02-02 00:09] LABS: GLYCOHEMOGLOBIN (HGB A1C) 5.2 % (4.8-5.6)
[2017-02-02 05:40] LABS: HEMATOCRIT 27.2 % (37.0-47.0); HEMOGLOBIN 9.2 gm/dL (12.0-15.0); MCH 30.6 pg (26.0-34.0); MCHC 33.7 g/dL (28.0-37.0); MCV 90.7 fL (80.0-100.0); RDW 13.4 % (10.5-14.5); WBC 17.5 thou/uL (4.0-11.0)
[2017-02-02 05:52] LABS: ALBUMIN 1.8 g/dL (3.4-5.0); CREATININE 1.8 mg/dL (0.6-1.3); PHOSPHORUS 3.6 mg/dL (2.5-4.9); POTASSIUM 3.6 mmol/L (3.5-5.1)
[2017-02-03] VITALS (11 sets, daily range): BP systolic 127–149; BP diastolic 58–79
[2017-02-03 05:29] LABS: HEMATOCRIT 28.1 % (37.0-47.0); HEMOGLOBIN 9.3 gm/dL (12.0-15.0); MCH 30.7 pg (26.0-34.0); MCHC 33.2 g/dL (28.0-37.0); MCV 92.5 fL (80.0-100.0); RBC 3.03 mil/uL (4.20-5.00); RDW 13.4 % (10.5-14.5); WBC 15.7 thou/uL (4.0-11.0)
[2017-02-03 05:46] LABS: CALCIUM 7.4 mg/dL (8.5-10.1); CREATININE 1.7 mg/dL (0.6-1.3); PHOSPHORUS 3.7 mg/dL (2.5-4.9); POTASSIUM 4.3 mmol/L (3.5-5.1)
[2017-02-04] VITALS (14 sets, daily range): BP systolic 132–158; BP diastolic 62–73
[2017-02-04 05:07] LABS: CALCIUM 7.8 mg/dL (8.5-10.1); CREATININE 1.5 mg/dL (0.6-1.3); PHOSPHORUS 3.7 mg/dL (2.5-4.9); POTASSIUM 4.3 mmol/L (3.5-5.1)
[2017-02-04 05:26] LABS: ABG SAMPLE TYPE ARTERIAL; PCO2 34.5 mmHg (35.0-45.0); PO2 63.1 mmHg (80.0-100.0); STICK SITE R.BRACHIAL; pH 7.468 (7.360-7.450)
[2017-02-04 05:27] LABS: HCO3 24.4 mmol/L (22.0-26.0); LACTATE 0.99 mmol/L (0.5-2.0); tCO2 25.5 mmol/L (24.0-30.0)
[2017-02-04 05:28] LABS: O2(CT) 13.4 mL/dL (15.0-23.0); O2Hb 89.6 % (92.0-98.0); sO2 93.6 % (92.0-98.0)
[2017-02-05 04:02] VITALS: BP 140/78
[2017-02-05 05:45] LABS: HEMATOCRIT 27.6 % (37.0-47.0); HEMOGLOBIN 9.2 gm/dL (12.0-15.0); MCHC 33.2 g/dL (28.0-37.0); MCV 93.3 fL (80.0-100.0); RBC 2.96 mil/uL (4.20-5.00); RDW 13.5 % (10.5-14.5); WBC 14.6 thou/uL (4.0-11.0)
[2017-02-05 06:07] LABS: CALCIUM 7.4 mg/dL (8.5-10.1); CREATININE 1.4 mg/dL (0.6-1.3)
[2017-02-05 08:10] VITALS: BP 140/72
[2017-02-05 12:30] VITALS: BP 142/52
[2017-02-05 16:24] VITALS: BP 152/75
[2017-02-05 20:32] VITALS: BP 126/79
[2017-02-06 03:30] VITALS: BP 114/59
[2017-02-06 05:35] LABS: HEMATOCRIT 29.4 % (37.0-47.0); HEMOGLOBIN 9.7 gm/dL (12.0-15.0); MCH 30.9 pg (26.0-34.0); MCHC 32.9 g/dL (28.0-37.0); MCV 93.8 fL (80.0-100.0); RBC 3.13 mil/uL (4.20-5.00); RDW 13.5 % (10.5-14.5); WBC 17.9 thou/uL (4.0-11.0)
[2017-02-06 05:50] LABS: CALCIUM 7.2 mg/dL (8.5-10.1); CREATININE 1.4 mg/dL (0.6-1.3); POTASSIUM 4.4 mmol/L (3.5-5.1)
[2017-02-06 07:31] VITALS: BP 140/72
[2017-02-06 10:44] VITALS: BP 140/72
[2017-02-06 11:22] VITALS: BP 160/76
[2017-02-06 15:55] VITALS: BP 119/72
[2017-02-06 19:36] VITALS: BP 151/80
[2017-02-07 05:13] VITALS: BP 104/55
[2017-02-07 05:27] LABS: HEMATOCRIT 29.8 % (37.0-47.0); HEMOGLOBIN 9.8 gm/dL (12.0-15.0); MCV 93.9 fL (80.0-100.0); RBC 3.18 mil/uL (4.20-5.00); RDW 13.8 % (10.5-14.5); WBC 15.7 thou/uL (4.0-11.0)
[2017-02-07 05:54] LABS: CALCIUM 7.3 mg/dL (8.5-10.1); CREATININE 1.4 mg/dL (0.6-1.3)
[2017-02-07 06:09] LABS: POTASSIUM 5.4 mmol/L (3.5-5.1)
[2017-02-07 08:16] VITALS: BP 121/73
[2017-02-07 12:00] VITALS: BP 106/68; BP 121/73
[2017-02-07 17:54] VITALS: BP 117/61
[2017-02-07 19:46] VITALS: BP 120/58
[2017-02-07 23:26] VITALS: BP 131/64
[2017-02-08 02:23] VITALS: BP 124/62
[2017-02-08 05:41] LABS: HEMATOCRIT 28.3 % (37.0-47.0); HEMOGLOBIN 9.2 gm/dL (12.0-15.0); MCH 30.8 pg (26.0-34.0); MCHC 32.6 g/dL (28.0-37.0); MCV 94.4 fL (80.0-100.0); RBC 2.99 mil/uL (4.20-5.00); RDW 14.3 % (10.5-14.5); WBC 21.1 thou/uL (4.0-11.0)
[2017-02-08 05:52] LABS: CALCIUM 7.5 mg/dL (8.5-10.1); CREATININE 1.4 mg/dL (0.6-1.3); POTASSIUM 5.2 mmol/L (3.5-5.1)
[2017-02-08 07:23] VITALS: BP 106/69
[2017-02-08 11:06] VITALS: BP 122/58
[2017-02-08 15:12] VITALS: BP 112/57
[2017-02-08 19:34] VITALS: BP 125/87
[2017-02-09 04:26] VITALS: BP 120/59
[2017-02-09 08:00] VITALS: BP 105/53
[2017-02-09 09:30] LABS: HEMATOCRIT 26.9 % (37.0-47.0); HEMOGLOBIN 8.9 gm/dL (12.0-15.0); MCH 31.1 pg (26.0-34.0); MCHC 33.1 g/dL (28.0-37.0); MCV 93.9 fL (80.0-100.0); PLATELET COUNT 105 thou/uL (150-400); RBC 2.86 mil/uL (4.20-5.00); RDW 13.7 % (10.5-14.5); WBC 24.4 thou/uL (4.0-11.0)
[2017-02-09 09:31] LABS: MANUAL DIFF YES
[2017-02-09 09:39] LABS: CALCIUM 7.4 mg/dL (8.5-10.1); CREATININE 1.5 mg/dL (0.6-1.3)
[2017-02-09 10:05] LABS: ABSOLUTE NEUTROPHILS 23.2 thou/uL (1.4-8.2); TOTAL CELL COUNT 100
[2017-02-09 16:00] VITALS: BP 111/51
[2017-02-09 19:40] VITALS: BP 133/65
[2017-02-10 03:25] VITALS: BP 149/56
[2017-02-10 05:58] LABS: HEMOGLOBIN 8.1 gm/dL (12.0-15.0); MCHC 32.5 g/dL (28.0-37.0); MCV 95.4 fL (80.0-100.0); RBC 2.62 mil/uL (4.20-5.00); RDW 14.4 % (10.5-14.5); WBC 16.6 thou/uL (4.0-11.0)
[2017-02-10 06:18] LABS: CALCIUM 7.6 mg/dL (8.5-10.1); CREATININE 1.4 mg/dL (0.6-1.3); POTASSIUM 5.5 mmol/L (3.5-5.1)
[2017-02-10 07:30] VITALS: BP 124/63
[2017-02-10 13:11] VITALS: BP 103/54
[2017-02-10 15:51] VITALS: BP 108/51
[2017-02-10 20:00] VITALS: BP 109/52
[2017-02-11 04:00] VITALS: BP 113/67
[2017-02-11 06:16] LABS: HEMOGLOBIN 8.6 gm/dL (12.0-15.0); WBC 16.7 thou/uL (4.0-11.0)
[2017-02-11 06:19] LABS: HEMATOCRIT 26.1 % (37.0-47.0); MCH 31.5 pg (26.0-34.0); MCHC 33.1 g/dL (28.0-37.0); MCV 95.2 fL (80.0-100.0); RBC 2.74 mil/uL (4.20-5.00); RDW 14.7 % (10.5-14.5)
[2017-02-11 06:41] LABS: CALCIUM 7.6 mg/dL (8.5-10.1); CREATININE 1.5 mg/dL (0.6-1.3); POTASSIUM 5.4 mmol/L (3.5-5.1)
[2017-02-11 07:16] VITALS: BP 139/62
[2017-02-11 11:33] VITALS: BP 105/52
[2017-02-11 15:41] VITALS: BP 125/63
[2017-02-11 19:43] VITALS: BP 128/66
[2017-02-12 04:38] VITALS: BP 143/65
[2017-02-12 08:29] VITALS: BP 153/73
[2017-02-12] MEDS ORDERED: PREDNISONE 20 M20 M1 PO (09:31)
[2017-02-12] MEDS ORDERED: POTASSIUM20 PO (09:31)
[2017-02-12] MEDS ORDERED: NEXIUM40 MG PO (09:31)
== END 2017-02-12 14:24 | DRG 871 ==
LOC: ER 06:55 → ICU 10:06 → EROBS 10:06 → ICU 11:00 → 2N 01-30 17:26 → ICU 01-31 03:05 → 4W 02-04 10:36
PROVIDERS: Emergency Medicine; Family Medicine; Internal Medicine Nephrology; Internal Medicine Pulmonary Disease; Nurse Practitioner Acute Care; Psychiatry & Neurology Neurology
PROC: 5A09557 Assistance with Respiratory Ventilation, Greater than 96 Consecutive Hours, Continuous Positive Airway Pressure (ICD-10-PCS; principal; 2017-01-27)
PROC: 05HB33Z Insertion of Infusion Device into Right Basilic Vein, Percutaneous Approach (ICD-10-PCS; principal; 2017-01-27)
PROC: 30233N1 Transfusion of Nonautologous Red Blood Cells into Peripheral Vein, Percutaneous Approach (ICD-10-PCS; 2017-01-31)
PROC: 5A09357 Assistance with Respiratory Ventilation, Less than 24 Consecutive Hours, Continuous Positive Airway Pressure (ICD-10-PCS; 2017-02-06)
DX: A41.9 Sepsis, unspecified organism (principal); J96.01 Acute respiratory failure with hypoxia; I21.4 Non-ST elevation (NSTEMI) myocardial infarction; J69.0 Pneumonitis due to inhalation of food and vomit; N17.9 Acute kidney failure, unspecified; K92.2 Gastrointestinal hemorrhage, unspecified; E87.0 Hyperosmolality and hypernatremia; D62 Acute posthemorrhagic anemia; J44.1 Chronic obstructive pulmonary disease with (acute) exacerbation; J44.0 Chronic obstructive pulmonary disease with (acute) lower respiratory infection; I69.954 Hemiplegia and hemiparesis following unspecified cerebrovascular disease affecting left non-dominant side; I25.10 Atherosclerotic heart disease of native coronary artery without angina pectoris; I50.9 Heart failure, unspecified; K58.9 Irritable bowel syndrome, unspecified; K21.9 Gastro-esophageal reflux disease without esophagitis; T45.515A Adverse effect of anticoagulants, initial encounter; S20.212A Contusion of left front wall of thorax, initial encounter; X58.XXXA Exposure to other specified factors, initial encounter; F17.210 Nicotine dependence, cigarettes, uncomplicated; I11.0 Hypertensive heart disease with heart failure; R65.20 Severe sepsis without septic shock; I35.0 Nonrheumatic aortic (valve) stenosis; I27.2 Other secondary pulmonary hypertension; D64.9 Anemia, unspecified; H57.02 Anisocoria; I48.0 Paroxysmal atrial fibrillation; G72.9 Myopathy, unspecified; Z95.1 Presence of aortocoronary bypass graft; Y93.89 Activity, other specified; Y92.89 Other specified places as the place of occurrence of the external cause; Z98.42 Cataract extraction status, left eye; Z98.41 Cataract extraction status, right eye; Y99.8 Other external cause status; Z88.0 Allergy status to penicillin; Z91.041 Radiographic dye allergy status; Z88.8 Allergy status to other drugs, medicaments and biological substances
CPT/HCPCS: 10045; 10047; 10078; 10081; 27000; 85076

== ENCOUNTER 2017-02-12 09:44 | Inpatient (IN) | payer OTHER ==
[~2017-02-12] VITALS: Ht 149.9 cm; Wt 52.8 kg
--- NOTE | ~2017-02-12 | PLAN ---
[facility] [place] [address] REHAB UNIT PLAN OF CARE Name: ROBERTA BAINS Room #: 512-P ADM IN M.R.#: [id number] Admission: 02/12/17 Attend Phys: Alvarez Mayes MD Discharge: Date of : 33 Report #: [id number] THIS REPORT FOR: //name// CC: Alvarez Bedoya HISTORY OF PRESENT ILLNESS: The patient is seen back today in followup. Last recorded temperature 36.8, pulse 77, respirations 16, blood pressure 127/74. She has limited verbalizations and is noted to have moderate to severe expressive deficits per speech. She is on a pureed diet with nectar thickened liquids. The staff is encouraging her as far as increasing her p.o. intake. Transfers are max assist, bed to wheelchair utilizing a sliding board. She has been nonambulatory. Upper body dressing is dependent with lower body dressing dependent. ASSESSMENT: 1. Multiple strokes, left cerebral hemisphere thalamus and mid brain. 2. New onset atrial fibrillation with non-Q wave myocardial infarction. 3. Gastrointestinal bleed after starting heparin. 4. Left chest wall hematoma. 5. 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 6. Prior coronary artery bypass grafting. 7. Atrial fibrillation. PLAN: The overall plan of care is based on the preadmission screen, postadmission physician evaluation and information garnered from therapy assessments. 1. Estimated length of stay is probably going to be fairly long as she is at a lower functional level. 2. Medical prognosis is reasonably good. We will likely need considerable assistance post-discharge. 3. Anticipated interventions includes PT, OT, speech, rehab therapy team to maximize her functional independence. 4. Anticipated functional outcomes would be for her to hopefully improve as far as basic transfers and ADLs as well as her swallowing and achieve a point where the family can assist her and she can get back into the home setting. 5. Discharge destination is back home with family. They definitely are wanting her to return back to the home setting when she is ready. 6. Expected therapy by discipline includes PT, OT and speech 1 hour per day each five days a week throughout the duration of the acute inpatient rehabilitation stay. <ELECTRONICALLY SIGNED> By: Alvarez Mayes MD 02/15/17 1539 1029 1240 Alvarez Mayes MD /nt
--- NOTE | ~2017-02-12 | HC ---
[facility] [place] [address] CONSULTATION Name: ROBERTA BAINS Room #: 512-P ADM IN M.R.#: [id number] Admission: 02/12/17 Attend Phys: Alvarez Mayes MD Discharge: Date of : 33 Report #: [id number] THIS REPORT FOR: //name// CC: Alvarez Bedoya DATE OF SERVICE: 02/14/2017 ATTENDING PHYSICIAN: Alvarez Mayes M.D. POLYSOM TECH: Caden Hunter, PhD CLINICAL PRESENTATION: The patient is an 81-year-old -English female admitted to the rehabilitation unit at [facility] for a comprehensive inpatient rehabilitation program to improve functional mobility and activities of daily living and self-care along with mental status secondary to deficits from multiple cerebrovascular accidents within the left cerebral hemisphere, thalamus and mid brain area. She also presents with the new onset atrial fibrillation with a non-Q wave myocardial infarction, gastrointestinal bleed after beginning heparin, left chest wall hematoma, a premorbid history of CVA with residual left hemiparesis, prior coronary artery bypass grafting and atrial fibrillation. A complete description of her medical condition and history can be found in her medical record. Neuropsychological consultation was requested to provide assistance in the assessment of cognitive and emotional status and to provide recommendations and services. Prior to this most recent admission, she was living at home with the assistance of her son. Her son lives with her. The patient had 5 children. 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 She is a high school graduate. The patient had seven siblings. One sister is living. The patient reported to have had a stroke about 14 years ago at which time she had discontinued driving and required increasing assistance to maintain safety in the community. TECHNIQUES UTILIZED: Clinical interview, review of medical records, staff consultation and behavioral observation, mini mental status exam 2 standard version. EXAMINATION FINDINGS: The patient was alert during the interview. However, she was minimally cooperative. She was very quite and had difficulty with verbal expression. Her niece was present during the assessment and provided necessary background information. The patient is reported to have been at home with her son but he was unable to awaken her and subsequently called for emergency services. According to the niece, patient was originally diagnosed with severe dehydration and pneumonia. [facility] [address] [place] [address] CONSULTATION Name: ROBERTA BAINS Room #: 512-P [facility] IN ..#: [id number] Admission: 02/12/17 Attend Phys: Alvarez Mayes MD Discharge: Date of : 33 Report #: [id number] The patient is unable to describe any symptoms. She does not report problems or debility or indicate the difficulty she would have if she was to return home. She lacks insight into the severity of her behavioral and cognitive deficits. Her mood appears depressed. She is an unreliable historian and that she is unable to describe current symptoms suggesting emotional distress or cognitive deficits. On cognitive assessment, she presents with severe deficits. Impairment is noted with immediate memory, sustained concentration and attention, ability to read and follow a single command, visual spatial disorganization and executive functioning. The patient is oriented to location. However, there are deficits in frontal lobe control with perseveration and intrusion areas noted during the assessment. DIAGNOSTIC IMPRESSION: Major neurocognitive disorder (dementia), due to vascular disease, without behavior disorder - extent to be determined, severe at this time. RECOMMENDATIONS: The patient will require 24-hour care at this time. Assistance with medical, financial and nutritional management are indicated. She is likely to lack initiative and will require an active environmental support to maintain safety, nutrition and assistance with ambulation and mobility. Thank you very much for allowing me to provide the consultation on this patient. <ELECTRONICALLY SIGNED> By: Caden Hunter, PhD 02/16/17 1549 1718 0330 Caden Hunter, PhD /nt
--- NOTE | ~2017-02-12 | H ---
[facility] [address] HISTORY AND PHYSICAL Name: ROBERTA BAINS Room #: 512-P ADM IN M.R.#: [id number] Admission: 02/12/17 Attend Phys: Alvarez Mayes MD Discharge: Date of : 33 Report #: [id number] THIS REPORT FOR: //name// CC: Alvarez Bedoya MD DATE OF SERVICE: 02/12/2017 HISTORY OF PRESENT ILLNESS: The patient is an 81-year-old -[place] female, right handed, originally admitted 01/27/2017 with mental status changes, pneumonia and acute renal insufficiency. She has a prior history of CVA with left hemiparesis. She was on Plavix and aspirin. Upon admission, she was noted to have a non-Q wave NM. She had anemia with the GI bleed after starting heparin for the new onset atrial fibrillation. MRI of the brain showed multiple strokes, left cerebral area, thalamus and mid brain. Neurology was involved as well as gastroenterology and cardiology. She was noted to be at high risk for more strokes and anticoagulation was held. She also had a left chest wall hematoma. She had a prolonged hospital course. She has subsequently had a stable hemoglobin and hematocrit and GI signed off and to continue p.o. PPI. Her dysphagia improved gradually and no plan for PEG tube. She was treated for aspiration pneumonia with sepsis. She was gradually stabilized and felt to be ready for transfer for acute in-hospital inpatient rehabilitation. She was eating better and the Dobhoff tube was removed. Plan is to keep off the anticoagulation with the hematoma formation in the chest area. PAST MEDICAL HISTORY: Includes the prior CVA with residual left hemiparesis, history of hypertension, atrial fibrillation, prior coronary artery bypass grafting, irritable bowel syndrome and GERD. MEDICATIONS: Please see the full medication listing. ALLERGIES: IODINE and PENICILLIN. SOCIAL HISTORY: Lives in a house with her son. She was able to get up and ambulate with a walker and was independent with ADLs. There is a daughter that helped with bathing. There also is an involved [id number] who was noted to be the durable power of criminal attorney. REVIEW OF SYSTEMS: No complaints of chest pain, shortness of breath, abdominal discomfort. She complains of general overall weakness, but is motivated to further improve. No focal extremity pain complaints. FAMILY HISTORY: Noncontributory. PHYSICAL EXAMINATION: GENERAL: She is a pleasant 81-year-old -[place] female, small statured, [facility] [address] [place] [address] HISTORY AND PHYSICAL Name: ROBERTA BAINS Room #: 512-P [facility] IN [facility]#: [id number] Admission: 02/12/17 Attend Phys: Alvarez Mayes MD Discharge: Date of : 33 Report #: [id number] no obvious distress. VITAL SIGNS: Last recorded temperature 98.7, pulse 85, respirations 22, blood pressure 141/68. NEUROLOGIC: She is alert, quite, decreased verbalizations, but appears to understand what I am asking. There may be some mild latency to her responses. HEENT: Facies appeared to be symmetric. CHEST: Some diffuse decreased breath sounds. CARDIAC: Sounded regular rate and rhythm with occasional extra beats. ABDOMEN: Bowel sounds positive, nontender. GENITOURINARY AND RECTAL: Deferred. EXTREMITIES: She has functional range of motion of the left upper extremity, strength is grade 3+/5, right upper extremity is 3+/5. DTRs are trace to 1. Lower extremities 3-3+/5. No clonus. No focal calf swelling. Bed mobility is max assist. She has been needing max assist for basic sitting balance with some right lean. ASSESSMENT: An 81-year-old -[place] female with the following problem list: 1. Multiple strokes, left cerebral hemisphere, thalamus and mid brain. 2. New onset atrial fibrillation with non-Q wave myocardial infarction. 3. Gastrointestinal bleed after starting heparin. 4. Left chest wall hematoma. 5. Premorbid history of a cerebrovascular accident with residual left hemiparesis for which the patient had been on Plavix and aspirin. 6. Prior coronary artery bypass grafting. 7. Atrial fibrillation. PLAN: The patient is admitted for acute in-hospital inpatient rehabilitation. From a postadmission physician evaluation perspective there are no relevant changes since the preadmission screening. Please see the above review of prior and current medical and functional conditions and comorbidities. Please see the patient's prior and current functional status. As far as risk of complications, she has the multiple medical comorbidities as noted above. Initial plan of care involves the interdisciplinary acute inpatient rehabilitation program with the goal of maximizing the patient's functional independence, so that she can hopefully return back to her prior living situation. Prognosis is reasonably good with estimated length of stay probably fairly long and she is at a significantly low level from her overall functional perspective. Potential barriers would include the multiple medical comorbidities and decreased functional status. [facility] [address] [place] [address] HISTORY AND PHYSICAL Name: ROBERTA BAINS Room #: 512-P [facility] IN .R.#: [id number] Admission: 02/12/17 Attend Phys: Alvarez Mayes MD Discharge: Date of : 33 Report #: [id number] The patient also has dysphagia as a problem list and is on a pureed diet with nectar-thickened liquids. <ELECTRONICALLY SIGNED> By: Alvarez Mayes MD 02/15/17 1539 0821 0951 Alvarez Mayes MD /nt
--- NOTE | ~2017-02-12 | D ---
[facility] [place] [address] DISCHARGE SUMMARY Name: ROBERTA BAINS Room #: 512-P [facility] IN M.R.#: [id number] Admission: 02/12/17 Attend Phys: Alvarez Mayes MD Discharge: 02/20/17 Date of : 33 Report #: [id number] THIS REPORT FOR: //name// CC: Alvarez Bedoya DATE OF SERVICE: 02/20/2017 HISTORY OF PRESENT ILLNESS: The patient is an 81-year-old -[place] Citizen female, originally admitted to [facility] on 01/27/2017 with mental status changes, pneumonia and acute renal insufficiency. She had a prior history of CVA with left hemiparesis. She was on Plavix and aspirin. Upon admission, she was noted to have a non-Q-wave LA. She had anemia with a GI bleed after starting heparin for new-onset atrial fibrillation. MRI of the brain showed multiple strokes in left cerebral area, thalamus and mid brain. Neurology was involved as well as Gastroenterology and Cardiology. She was noted to be at high risk for more strokes and anticoagulation was held. She also had a left chest wall hematoma. She had a prolonged course, gradually stabilized. Did not need a PEG tube and Dobbhoff tube was removed. She was felt to be ready for transfer for acute in-hospital inpatient rehabilitation. Please see the full admission note dictation. HOSPITAL COURSE: The patient was involved in the rehabilitation program. She was making slow progress. She failed voiding trial, had urinary retention and her Flomax had to be replaced. She was noted to have dysphagia, on pureed diet with nectar-thickened liquids. She was still needing max assist for transfers and was needing max assist to try to take any steps and dressing was dependent, with moderate comprehension deficits. She developed mental status changes, with rapid response team contacted, she was hypotensive, placed on fluids as well as hypernatremic and noted to have acute renal insufficiency with metabolic acidosis and decreased urine out. There was concern that she may have had further neurologic event. She was transferred off to the acute inpatient rehab [facility] for further medical management and evaluation. DISCHARGE DIAGNOSES: Include: 1. Multiple strokes to left cerebral hemisphere, thalamus and mid brain. 2. New-onset atrial fibrillation with non-Q-wave myocardial infarction. 3. Gastrointestinal bleed after starting heparin. 4. Left chest wall hematoma. 5. Premorbid history of cerebrovascular accident with residual left hemiparesis, which she had been on Plavix and aspirin. 6. Prior coronary artery bypass grafting. 7. Significant dysphagia. 8. Atrial fibrillation. PLAN: The patient has been transferred off the acute inpatient rehabilitation [address] [address] DISCHARGE SUMMARY Name: ROBERTA BAINS Kerrie Room #: 512-P [facility] IN M.R.#: [id number] Admission: 02/12/17 Attend Phys: Alvarez Mayes MD Discharge: 02/20/17 Date of : 33 Report #: [id number] [facility]. Defer further management, activity level, etc. as per the accepting service. By: 0927 0948 Alvarez Mayes MD /nt
[~2017-02-12 09:44] MED LIST: ASPIR 8181 MG PO; CARVEDILOL12.5 MG PO; FISH OIL 1,2001 EAC3 PO; FUROSEMIDE 40 M40 MG PO; IMDUR 30 MG TAB30 M1 PO; LISINOPRIL20 MG PO; NEXIUM40 MG PO; NORVASC5 MG PO; PLAVIX 75 MG TA75 M1 PO; POTASSIUM20 PO; PREDNISONE 20 M20 M1 PO; VITAMIN B-12500 MCG PO; VITAMINC500 PO; VYTORIN 10-801 EACH PO
[2017-02-12 15:07] VITALS: BP 141/68
[2017-02-12 17:10] VITALS: BP 127/62
[2017-02-12 20:10] VITALS: BP 144/89
[2017-02-13 03:45] VITALS: BP 124/62
[2017-02-13 05:34] LABS: HEMOGLOBIN 8.9 gm/dL (12.0-15.0); RDW 15.2 % (10.5-14.5); WBC 14.8 thou/uL (4.0-11.0)
[2017-02-13 05:36] LABS: HEMATOCRIT 26.9 % (37.0-47.0); MCH 31.5 pg (26.0-34.0); MCV 95.5 fL (80.0-100.0); RBC 2.81 mil/uL (4.20-5.00)
[2017-02-13 05:40] LABS: CALCIUM 7.9 mg/dL (8.5-10.1); CREATININE 1.5 mg/dL (0.6-1.3); POTASSIUM 4.7 mmol/L (3.5-5.1)
[2017-02-13 15:30] VITALS: BP 109/60
[2017-02-13 17:09] VITALS: BP 130/78
[2017-02-13 19:41] VITALS: BP 126/62
[2017-02-14 03:07] VITALS: BP 129/56
[2017-02-14 08:37] VITALS: BP 138/70
[2017-02-14 16:00] VITALS: BP 121/67
[2017-02-14 21:20] VITALS: BP 106/64; BP 109/70
[2017-02-15 04:58] VITALS: BP 98/45
[2017-02-15 06:00] VITALS: BP 108/91
[2017-02-15 13:29] LABS: HEMATOCRIT 30.2 % (37.0-47.0); HEMOGLOBIN 9.9 gm/dL (12.0-15.0); MCH 31.9 pg (26.0-34.0); MCHC 32.7 g/dL (28.0-37.0); MCV 97.5 fL (80.0-100.0); RBC 3.1 mil/uL (4.20-5.00); RDW 17.3 % (10.5-14.5); WBC 18.5 thou/uL (4.0-11.0)
[2017-02-15 13:41] LABS: CALCIUM 8.2 mg/dL (8.5-10.1); CREATININE 1.6 mg/dL (0.6-1.3); POTASSIUM 4.8 mmol/L (3.5-5.1)
[2017-02-15 15:26] VITALS: BP 108/65
[2017-02-16 05:44] VITALS: BP 118/63
[2017-02-16 08:50] VITALS: BP 130/66
[2017-02-16 16:12] VITALS: BP 122/75
[2017-02-17 05:53] VITALS: BP 125/61
[2017-02-17 15:30] VITALS: BP 125/68
[2017-02-18 04:00] VITALS: BP 122/68
[2017-02-18 16:20] VITALS: BP 133/71
[2017-02-19 04:22] LABS: HEMOGLOBIN 9.9 gm/dL (12.0-15.0)
[2017-02-19 04:26] LABS: HEMATOCRIT 30.2 % (37.0-47.0); MCH 32.5 pg (26.0-34.0); MCHC 32.8 g/dL (28.0-37.0); MCV 98.9 fL (80.0-100.0); RBC 3.05 mil/uL (4.20-5.00); RDW 18.6 % (10.5-14.5)
[2017-02-19 04:27] LABS: CALCIUM 8.2 mg/dL (8.5-10.1); CREATININE 1.5 mg/dL (0.6-1.3); POTASSIUM 3.9 mmol/L (3.5-5.1)
[2017-02-19 05:00] VITALS: BP 132/61
[2017-02-19 07:43] VITALS: BP 139/70
[2017-02-19 14:45] VITALS: BP 107/71
[2017-02-19 20:00] VITALS: BP 93/54
[2017-02-20 06:09] VITALS: BP 103/65
[2017-02-20 13:16] VITALS: BP 96/53
[2017-02-20 14:12] LABS: ABG SAMPLE TYPE ARTERIAL; BE(vivo) 6.9 mmol/L (-2 to +3); O2(CT) 11.3 mL/dL (15.0-23.0); O2Hb 89.7 % (92.0-98.0); PCO2 31.6 mmHg (35.0-45.0); PO2 59.1 mmHg (80.0-100.0); STICK SITE L.BRACHIAL; sO2 94.2 % (92.0-98.0); tCO2 29.9 mmol/L (24.0-30.0)
[2017-02-20 14:13] LABS: HEMATOCRIT 25.7 % (37.0-47.0); HEMOGLOBIN 8.3 gm/dL (12.0-15.0); MCH 32.1 pg (26.0-34.0); MCHC 32.5 g/dL (28.0-37.0); MCV 98.9 fL (80.0-100.0); RBC 2.6 mil/uL (4.20-5.00); RDW 18.3 % (10.5-14.5); WBC 11.2 thou/uL (4.0-11.0)
[2017-02-20 14:21] LABS: CALCIUM 8.4 mg/dL (8.5-10.1); CREATININE 2.1 mg/dL (0.6-1.3); POTASSIUM 4.5 mmol/L (3.5-5.1)
== END 2017-02-20 14:29 | DRG 64 ==
PROVIDERS: Family Medicine; Physical Medicine & Rehabilitation
DX: I63.9 Cerebral infarction, unspecified (principal); A41.9 Sepsis, unspecified organism; I21.4 Non-ST elevation (NSTEMI) myocardial infarction; J69.0 Pneumonitis due to inhalation of food and vomit; G81.94 Hemiplegia, unspecified affecting left nondominant side; K92.2 Gastrointestinal hemorrhage, unspecified; E87.0 Hyperosmolality and hypernatremia; E87.2 Acidosis; N17.9 Acute kidney failure, unspecified; F01.50 Vascular dementia, unspecified severity, without behavioral disturbance, psychotic disturbance, mood disturbance, and anxiety; I10 Essential (primary) hypertension; I48.91 Unspecified atrial fibrillation; K58.9 Irritable bowel syndrome, unspecified; K21.9 Gastro-esophageal reflux disease without esophagitis; S20.212A Contusion of left front wall of thorax, initial encounter; R33.9 Retention of urine, unspecified; X58.XXXA Exposure to other specified factors, initial encounter; D64.9 Anemia, unspecified; I25.10 Atherosclerotic heart disease of native coronary artery without angina pectoris; J44.9 Chronic obstructive pulmonary disease, unspecified; I35.0 Nonrheumatic aortic (valve) stenosis; G72.9 Myopathy, unspecified; T38.0X5A Adverse effect of glucocorticoids and synthetic analogues, initial encounter; Z95.1 Presence of aortocoronary bypass graft; Y93.89 Activity, other specified; Y92.89 Other specified places as the place of occurrence of the external cause; Y99.8 Other external cause status; Z88.8 Allergy status to other drugs, medicaments and biological substances; Z88.0 Allergy status to penicillin; Z91.041 Radiographic dye allergy status
CPT/HCPCS: 10112

== ENCOUNTER 2017-02-20 13:27 | Inpatient (IN) | payer OTHER, BC ==
[~2017-02-20] VITALS: Ht 144.8 cm; Wt 48.4 kg
--- NOTE | ~2017-02-20 | HC ---
[facility] [place] [address] CONSULTATION Name: ROBERTA BAINS Room #: 438-P ADM IN M.R.#: [id number] Admission: 02/20/17 Attend Phys: Alxe Machuca MD Discharge: Date of : 31 Report #: [id number] THIS REPORT FOR: //name// CC: Alvarez Machuca TYPE OF REPORT: Infectious diseases consultation. REASON FOR CONSULTATION: I was asked to evaluate concerning polymicrobial urinary tract infection. HISTORY OF PRESENT ILLNESS: The patient is an 81-year old who was admitted initially on 01/27/2017 with mental status changes, pneumonia and acute renal failure. Prior history of stroke with dense left hemiparesis. She has also noted to have a non-Q-wave HI. She has atrial fibrillation. Was taken off anticoagulation due to GI bleed. She was treated for aspiration pneumonia. She was later admitted to the acute rehabilitation unit. Subsequently, had acute episode of hypotension and lethargy, became less responsive and was readmitted to the acute care unit on 02/20/2017. She had a right IJ catheter placed. Now has an NG tube for feeding. She was noted to have hypernatremia, now improved. It is felt that her acute mental status changes were due to electrolyte imbalance. Hypotension resolved. She does have anasarca and low albumin. She has dysphagia and now is considering a feeding gastrostomy tube. No further GI bleeding was identified. She does have a chest wall hematoma, which has been stable. She has underlying COPD and aortic stenosis with component of congestive heart failure. She has an indwelling Dodd catheter. She had urinalysis, which showed only rare wbc's and moderate bacteria on 02/20/2017. This was repeated on 02/25/2017, which showed a few wbc's, rare rbc's and many bacteria with yeast present. Urine culture from that date was obtained and shows a gram-positive cocci including coag-negative staph, Enterococcus along with a less than 10 to the fourth Pseudomonas aeruginosa pansensitive. She has been treated with at one dose of fluconazole yesterday. She also received one dose of ceftriaxone on the 3rd. PAST MEDICAL HISTORY: Unchanged from her H and P. This has been reviewed. FAMILY HISTORY: Unchanged from her H and P. This has been reviewed. SOCIAL HISTORY: Unchanged from her H and P. This has been reviewed. ALLERGIES: CONTRAST DYE, IODINE and PENICILLIN. MEDICATIONS: As noted on her MAR, which were reviewed. REVIEW OF SYSTEMS: The patient unable to give any details. PHYSICAL EXAMINATION: [address] [address] CONSULTATION Name: ROBERTA BAINS Room #: 438-P [facility] IN M.R.#: [id number] Admission: 02/20/17 Attend Phys: Alex Machuca MD Discharge: Date of : 31 Report #: [id number] VITAL SIGNS: She was afebrile and hemodynamically stable. GENERAL: She was sitting up in her recliner chair. NG tube was in place. She had a right IJ catheter in place. SKIN: She has left chest hematoma with ecchymosis. NECK: Supple. HEENT: Mouth was unremarkable. LUNGS: Few coarse breath sounds bilaterally. No consolidation. HEART: Regular, without appreciable murmur. ABDOMEN: Soft and nontender. No hepatosplenomegaly or mass. She had an indwelling Dodd catheter. EXTREMITIES: 1+ peripheral edema. LABORATORY STUDIES: Sodium 143, potassium 4.3, bicarbonate 33 and creatinine 1.2 down from 2.5 on the . Bilirubin 0.9, alk phos 51 and ALT 43. Hemoglobin 9.8; WBC 8.2 and platelet count 80,000. Urinalysis as noted. Urine culture as noted. Blood cultures from 02/22/2017 were negative. Urine culture from 02/22/2017 showed Camila glabrata, which was not evident on 02/25/2017 sample. IMPRESSION AND PLAN: An 81-year old with multiple comorbidities, concern now is regarding her urinary tract. The patient's family has elected to pursue hospice care. Family would like the patient to have a percutaneous endoscopic gastrostomy tube placed prior to transfer. I suspect colonization of her urinary tract. No fever. No leukocytosis. Minimal pyuria and multiple organisms identified. Initially, she had Camila 4 days ago, then has multiple organisms including gram-positive and gram-negative organisms. I would recommend observation off antibiotics at this point in time. The patient has elected to pursue percutaneous endoscopic gastrostomy tube placement. The patient should spike fever or have any significant change in her condition would empirically treat with antipseudomonal coverage. <ELECTRONICALLY SIGNED> By: Rafita Wise MD 03/01/17 [id number] Rafita Wise MD /nt
[2017-02-20 16:03] VITALS: BP 85/63
[2017-02-20 17:00] VITALS: BP 85/60
[2017-02-20 20:17] VITALS: BP 89/45
[2017-02-20 21:20] LABS: URINE BILIRUBIN NEGATIVE (Negative); URINE BLOOD NEGATIVE (Negative); URINE COLOR YELLOW; URINE GLUCOSE-RANDOM* NEGATIVE (Negative); URINE KETONES NEGATIVE (Negative); URINE NITRITE NEGATIVE (Negative); URINE PROTEIN (DIPSTICK) NEGATIVE (Negative)
[2017-02-20 21:31] LABS: SQUAMOUS 0-3 Few /LPF (0-3)
[2017-02-20 21:32] LABS: BACTERIA >30 Many /HPF (None Seen); CASTS None Seen /LPF (None Seen); YEAST Present (None Seen)
[2017-02-20 21:33] LABS: CRYSTALS None Seen /LPF (None Seen); URINE RBC None Seen /HPF (0-2); URINE WBC 0-5 Rare /HPF (0-5)
[2017-02-21] VITALS (55 sets, daily range): BP systolic 73–122; BP diastolic 26–97
[2017-02-21 06:13] LABS: WBC 9.4 thou/uL (4.0-11.0)
[2017-02-21 06:15] LABS: HEMATOCRIT 23.8 % (37.0-47.0); MCHC 33.5 g/dL (28.0-37.0); MCV 98.3 fL (80.0-100.0); RBC 2.42 mil/uL (4.20-5.00); RDW 18.8 % (10.5-14.5)
[2017-02-21 06:21] LABS: MANUAL DIFF YES
[2017-02-21 06:38] LABS: CALCIUM 7.7 mg/dL (8.5-10.1); CREATININE 2.2 mg/dL (0.6-1.3); MAGNESIUM 2.1 mg/dL (1.8-2.4); POTASSIUM 4.2 mmol/L (3.5-5.1); TOTAL BILIRUBIN 0.8 mg/dL (<0.1-1.0); TOTAL PROTEIN 4.3 g/dL (6.4-8.2)
[2017-02-21 07:32] LABS: TOTAL CELL COUNT 100
[2017-02-21 07:35] LABS: PLATELET COUNT 67 thou/uL (150-400)
[2017-02-21 07:36] LABS: LARGE PLATELETS RARE
[2017-02-21 07:37] LABS: PLATELET ESTIMATE DECREASED
[2017-02-21 07:38] LABS: ANISOCYTOSIS 2+; MACROCYTES 1+; MICROCYTES 1+; OVALOCYTES OCCASIONAL; POIKILOCYTOSIS SLIGHT
[2017-02-21 09:37] LABS: CHOLESTEROL 129 mg/dL (<200); HDL CHOLESTEROL 37 mg/dL (>40); LDL CHOLESTEROL 70 mg/dL (<100); TC:HDL 3.5 Ratio (Not establshd); TRIGLYCERIDE 114 mg/dL (<150); VLDL 23 mg/dL (<40)
[2017-02-21 15:10] LABS: URINE CREATININE-RANDOM* 131.9 mg/dL (Not Estab.); URINE PROTEIN-RANDOM* 13.4 mg/dL (Not Estab.)
[2017-02-22] VITALS (28 sets, daily range): BP systolic 85–115; BP diastolic 52–80
[2017-02-22 00:06] LABS: GLYCOHEMOGLOBIN (HGB A1C) 5.4 % (4.8-5.6)
[2017-02-22 05:41] LABS: WBC 9.1 thou/uL (4.0-11.0)
[2017-02-22 05:42] LABS: HEMATOCRIT 20.8 % (37.0-47.0); MCH 32.8 pg (26.0-34.0); MCHC 33.7 g/dL (28.0-37.0); MCV 97.5 fL (80.0-100.0); PLATELET COUNT 67 thou/uL (150-400); RBC 2.13 mil/uL (4.20-5.00); RDW 18.5 % (10.5-14.5)
[2017-02-22 05:44] LABS: CALCIUM 7.2 mg/dL (8.5-10.1); CREATININE 2.5 mg/dL (0.6-1.3); MAGNESIUM 1.8 mg/dL (1.8-2.4); PHOSPHORUS 5.3 mg/dL (2.5-4.9); POTASSIUM 3.7 mmol/L (3.5-5.1); TOTAL BILIRUBIN 0.9 mg/dL (<0.1-1.0); TOTAL PROTEIN 4.7 g/dL (6.4-8.2)
[2017-02-22 05:46] LABS: MANUAL DIFF YES
[2017-02-22 07:21] LABS: ABSOLUTE NEUTROPHILS 7.6 thou/uL (1.4-8.2); TOTAL CELL COUNT 100
[2017-02-22 07:22] LABS: ANISOCYTOSIS 2+; PLATELET ESTIMATE DECREASED
[2017-02-22 21:06] LABS: HEMATOCRIT 35.4 % (37.0-47.0)
[2017-02-22 21:07] LABS: HEMOGLOBIN 12.3 gm/dL (12.0-15.0)
[2017-02-23] VITALS (24 sets, daily range): BP systolic 98–136; BP diastolic 58–104
[2017-02-23 05:46] LABS: HEMATOCRIT 34.4 % (37.0-47.0); HEMOGLOBIN 11.8 gm/dL (12.0-15.0); MCH 30.8 pg (26.0-34.0); MCHC 34.2 g/dL (28.0-37.0); RBC 3.82 mil/uL (4.20-5.00); WBC 9.8 thou/uL (4.0-11.0)
[2017-02-23 05:50] LABS: MCV 89.8 fL (80.0-100.0)
[2017-02-23 06:02] LABS: ALBUMIN 1.9 g/dL (3.4-5.0); CALCIUM 7.1 mg/dL (8.5-10.1); CREATININE 2.1 mg/dL (0.6-1.3); PHOSPHORUS 4.9 mg/dL (2.5-4.9); POTASSIUM 3.3 mmol/L (3.5-5.1)
[2017-02-24] VITALS (11 sets, daily range): BP systolic 103–155; BP diastolic 52–79
[2017-02-24 07:01] LABS: HEMOGLOBIN 11.9 gm/dL (12.0-15.0)
[2017-02-24 07:02] LABS: HEMATOCRIT 33.6 % (37.0-47.0); MCHC 35.3 g/dL (28.0-37.0); MCV 90.5 fL (80.0-100.0); RBC 3.71 mil/uL (4.20-5.00); RDW 17.4 % (10.5-14.5); WBC 10.7 thou/uL (4.0-11.0)
[2017-02-24 07:05] LABS: MANUAL DIFF YES
[2017-02-24 07:22] LABS: ALBUMIN 1.9 g/dL (3.4-5.0); CALCIUM 7.4 mg/dL (8.5-10.1); CREATININE 1.6 mg/dL (0.6-1.3); POTASSIUM 3.2 mmol/L (3.5-5.1); TOTAL BILIRUBIN 0.9 mg/dL (<0.1-1.0); TOTAL PROTEIN 4.7 g/dL (6.4-8.2)
[2017-02-24 08:57] LABS: TOTAL CELL COUNT 100
[2017-02-24 08:58] LABS: ANISOCYTOSIS 1+; PLATELET COUNT 60 thou/uL (150-400)
[2017-02-25 03:30] VITALS: BP 108/56
[2017-02-25 05:52] LABS: ALBUMIN 1.7 g/dL (3.4-5.0); CALCIUM 7.4 mg/dL (8.5-10.1); CREATININE 1.6 mg/dL (0.6-1.3); PHOSPHORUS 3.2 mg/dL (2.5-4.9); POTASSIUM 3.9 mmol/L (3.5-5.1)
[2017-02-25 09:15] VITALS: BP 102/61
[2017-02-25 12:43] VITALS: BP 100/52
[2017-02-25 12:51] LABS: URINE BILIRUBIN NEGATIVE (Negative); URINE BLOOD 2+ (Negative); URINE COLOR YELLOW; URINE GLUCOSE-RANDOM* NEGATIVE (Negative); URINE KETONES NEGATIVE (Negative); URINE LEUKOCYTES-REFLEX 3+ (Negative); URINE PROTEIN (DIPSTICK) NEGATIVE (Negative); URINE UROBILINOGEN 0.2 E.U./dl (0.2-1.0)
[2017-02-25 12:57] LABS: SQUAMOUS 4-10 Moderate /LPF (0-3)
[2017-02-25 13:05] LABS: AMORPHOUS URATES Few /LPF (None Seen); YEAST-REFLEX Present (None Seen)
[2017-02-25 13:06] LABS: HYALINE CASTS 0-3 Few /LPF (None Seen); URINE RBC 0-2 Rare /HPF (0-2); URINE WBC-REFLEX 6-15 Few /HPF (0-5)
[2017-02-25 16:00] VITALS: BP 98/61
[2017-02-25 19:45] VITALS: BP 146/80
[2017-02-26 04:35] VITALS: BP 97/50
[2017-02-26 06:09] LABS: CALCIUM 7.9 mg/dL (8.5-10.1); CREATININE 1.4 mg/dL (0.6-1.0); POTASSIUM 4.1 mmol/L (3.5-5.1)
[2017-02-26 08:45] VITALS: BP 98/51
[2017-02-26 12:06] VITALS: BP 85/51
[2017-02-26 16:15] VITALS: BP 89/42
[2017-02-26 19:35] VITALS: BP 110/57
[2017-02-27 04:00] VITALS: BP 96/51
[2017-02-27 07:27] LABS: HEMATOCRIT 28.8 % (37.0-47.0); MCH 31.8 pg (26.0-34.0); MCHC 34.1 g/dL (28.0-37.0); MCV 93.2 fL (80.0-100.0); RBC 3.09 mil/uL (4.20-5.00); RDW 17.7 % (10.5-14.5); WBC 8.2 thou/uL (4.0-11.0)
[2017-02-27 07:37] LABS: HEMOGLOBIN 9.8 gm/dL (12.0-15.0)
[2017-02-27 07:39] LABS: ALBUMIN 1.7 g/dL (3.4-5.0); CALCIUM 7.7 mg/dL (8.5-10.1); CREATININE 1.3 mg/dL (0.6-1.0); PHOSPHORUS 3.4 mg/dL (2.5-4.9)
[2017-02-27 07:42] LABS: POTASSIUM 2.9 mmol/L (3.5-5.1)
[2017-02-27 07:54] VITALS: BP 106/60
[2017-02-27 11:18] VITALS: BP 113/60
[2017-02-27 15:25] VITALS: BP 105/64
[2017-02-27 19:37] VITALS: BP 116/66
[2017-02-28 03:45] VITALS: BP 104/76
[2017-02-28 07:06] LABS: ALBUMIN 1.9 g/dL (3.4-5.0); CREATININE 1.2 mg/dL (0.6-1.0); MAGNESIUM 1.8 mg/dL (1.8-2.4); PHOSPHORUS 1.7 mg/dL (2.5-4.9)
[2017-02-28 07:07] LABS: POTASSIUM 4.3 mmol/L (3.5-5.1)
[2017-02-28 08:00] VITALS: BP 124/79
[2017-02-28 12:00] VITALS: BP 104/61
[2017-02-28 16:00] VITALS: BP 105/74
[2017-02-28 20:45] VITALS: BP 119/71
[2017-03-01 05:07] VITALS: BP 108/71
[2017-03-01 06:02] LABS: ALBUMIN 1.9 g/dL (3.4-5.0); CALCIUM 8.6 mg/dL (8.5-10.1); CREATININE 1.3 mg/dL (0.6-1.0); PHOSPHORUS 2.3 mg/dL (2.5-4.9); POTASSIUM 3.9 mmol/L (3.5-5.1)
[2017-03-01 08:18] VITALS: BP 108/71
[2017-03-01 11:30] VITALS: BP 112/61
[2017-03-01 15:58] VITALS: BP 108/59
[2017-03-01 19:50] VITALS: BP 103/55
[2017-03-02 04:36] VITALS: BP 104/67
[2017-03-02 05:07] LABS: CALCIUM 8.4 mg/dL (8.5-10.1); CREATININE 1.3 mg/dL (0.6-1.0); POTASSIUM 4.1 mmol/L (3.5-5.1)
[2017-03-02 05:09] LABS: ABSOLUTE NEUTROPHILS 7.9 thou/uL (1.4-8.2); BASOPHILS 0.2 % (0.0-2.0); EOSINOPHILS 0.4 % (0.0-3.0); HEMATOCRIT 30.2 % (37.0-47.0); HEMOGLOBIN 10.2 gm/dL (12.0-15.0); LYMPHOCYTES 12.8 % (24.0-44.0); MCH 31.1 pg (26.0-34.0); MCHC 33.7 g/dL (28.0-37.0); MCV 92.5 fL (80.0-100.0); MONOCYTES 2.9 % (1.0-8.0); PLATELET COUNT 121 thou/uL (150-400); POLYS 83.7 % (36.0-66.0); RBC 3.27 mil/uL (4.20-5.00); RDW 17.5 % (10.5-14.5); WBC 9.4 thou/uL (4.0-11.0)
[2017-03-02 05:17] LABS: MANUAL DIFF NO
[2017-03-02 08:00] VITALS: BP 109/64
[2017-03-02 12:00] VITALS: BP 109/65
[2017-03-02 16:00] VITALS: BP 99/55
[2017-03-02 19:32] VITALS: BP 98/59
[2017-03-03 03:33] VITALS: BP 102/59
[2017-03-03 07:56] VITALS: BP 89/53
[2017-03-03 11:25] VITALS: BP 125/65
[2017-03-03 15:19] VITALS: BP 94/54
[2017-03-03 19:04] VITALS: BP 99/59
[2017-03-04 04:33] VITALS: BP 102/61
[2017-03-04 07:17] VITALS: BP 101/62
[2017-03-04 11:17] VITALS: BP 97/64
[2017-03-04 15:10] VITALS: BP 108/68
[2017-03-04 20:28] VITALS: BP 99/62
[2017-03-05 04:43] VITALS: BP 103/50
[2017-03-05 07:59] VITALS: BP 96/56
[2017-03-05 08:00] VITALS: BP 96/56
[2017-03-05 11:48] VITALS: BP 99/68
[2017-03-05 14:59] VITALS: BP 99/68
[2017-03-05 20:36] VITALS: BP 113/67
[2017-03-06 03:15] VITALS: BP 113/63
[2017-03-06 08:00] VITALS: BP 82/64
[2017-03-06 10:59] VITALS: BP 90/59
[2017-03-06 13:20] VITALS: BP 105/65
[2017-03-06 16:27] VITALS: BP 100/62
[2017-03-06 20:00] VITALS: BP 103/62
[2017-03-07 04:50] VITALS: BP 94/55
[2017-03-07 08:15] VITALS: BP 102/62
[2017-03-07] MEDS ORDERED: BISAC-EVAC10 MG RECTAL (11:46)
[2017-03-07 14:49] VITALS: BP 99/68
== END 2017-03-07 15:30 | disposition home health service (06) | DRG 682 ==
LOC: 4W 13:27 → ICU 14:34 → 4S 14:34 → ICU 02-21 10:17 → 4S 02-24 07:53
PROVIDERS: Family Medicine; Internal Medicine Nephrology; Nurse Practitioner; Psychiatry & Neurology Neurology
PROC: 02HV33Z Insertion of Infusion Device into Superior Vena Cava, Percutaneous Approach (ICD-10-PCS; principal; 2017-02-21)
PROC: B548ZZA Ultrasonography of Superior Vena Cava, Guidance (ICD-10-PCS; principal; 2017-02-21)
PROC: 30233N1 Transfusion of Nonautologous Red Blood Cells into Peripheral Vein, Percutaneous Approach (ICD-10-PCS; 2017-02-22)
DX: N17.9 Acute kidney failure, unspecified (principal); G93.41 Metabolic encephalopathy; E43 Unspecified severe protein-calorie malnutrition; E87.0 Hyperosmolality and hypernatremia; E87.2 Acidosis; E44.0 Moderate protein-calorie malnutrition; I13.0 Hypertensive heart and chronic kidney disease with heart failure and stage 1 through stage 4 chronic kidney disease, or unspecified chronic kidney disease; I35.0 Nonrheumatic aortic (valve) stenosis; I50.9 Heart failure, unspecified; K21.9 Gastro-esophageal reflux disease without esophagitis; K58.9 Irritable bowel syndrome, unspecified; F17.210 Nicotine dependence, cigarettes, uncomplicated; R13.10 Dysphagia, unspecified; D64.9 Anemia, unspecified; J44.9 Chronic obstructive pulmonary disease, unspecified; I25.10 Atherosclerotic heart disease of native coronary artery without angina pectoris; G72.9 Myopathy, unspecified; R53.81 Other malaise; I48.0 Paroxysmal atrial fibrillation; E87.6 Hypokalemia; N18.9 Chronic kidney disease, unspecified; I27.2 Other secondary pulmonary hypertension; T38.0X5A Adverse effect of glucocorticoids and synthetic analogues, initial encounter; R62.7 Adult failure to thrive; E11.65 Type 2 diabetes mellitus with hyperglycemia; E11.649 Type 2 diabetes mellitus with hypoglycemia without coma; E11.22 Type 2 diabetes mellitus with diabetic chronic kidney disease; Z86.73 Personal history of transient ischemic attack (TIA), and cerebral infarction without residual deficits; Z88.0 Allergy status to penicillin; Z68.23 Body mass index [BMI] 23.0-23.9, adult; Z91.041 Radiographic dye allergy status; Z90.49 Acquired absence of other specified parts of digestive tract; Y92.89 Other specified places as the place of occurrence of the external cause; I25.2 Old myocardial infarction; Z95.1 Presence of aortocoronary bypass graft; Z87.01 Personal history of pneumonia (recurrent)
CPT/HCPCS: 10045; 10078; 10100; 10102; 85010; 85076